=== PATIENT | male | born 1975 | race African-American/Black ===

== ENCOUNTER 2021-08-22 18:40 | Emergency (ER) | payer MEDICAID ==
[~2021-08-22] VITALS: Ht 177.8 cm; Wt 75.0 kg
[~2021-08-22 18:40] MED LIST: ALLO100T MT; COR6 MT; FURO-151 MT; LOSA25TA3 MT; METF500T PO
[2021-08-23 00:18] LABS: BASOPHILS % 0.7 % (0.0-2.0); HEMATOCRIT. 46.3 % (42.0-52.0); HEMOGLOBIN. 16.1 g/dL (14.0-18.0); LYMPHOCYTES % 16.7 % (20.0-50.0); MEAN CORPUSCULAR HEMOGLOBIN 32.2 pg (28.0-32.0); MEAN CORPUSCULAR VOLUME 92.4 fL (80.0-94.0); MEAN PLATELET VOLUME 8.5 fl (7.4-10.4); MONOCYTES % 7.2 % (2.0-8.0); NEUTROPHILS % 73.4 % (40.0-76.0); PLATELET 274 x1000/uL (130-400); RED BLOOD CELL COUNT 5.01 mill/uL (4.7-6.1); RED CELL DISTRIBUTION WIDTH 13.6 % (11.6-14.6)
[2021-08-23 00:27] LABS: CHLORIDE 104 mEq/L (98-107)
[2021-08-23] MEDS ORDERED: KETOROLAC 30MG/ML VIAL IM ONE (00:30)
[2021-08-23 00:53] VITALS: BP 121/80
== END 2021-08-23 02:09 | disposition home or self-care (01) ==
LOC: ER 18:40
DX: R07.9 Chest pain, unspecified (principal); I10 Essential (primary) hypertension; F10.129 Alcohol abuse with intoxication, unspecified; Y90.9 Presence of alcohol in blood, level not specified
CPT/HCPCS: 36415; 71045; 80053; 84484; 85025; 93005; 96372; 99285; J1885

== ENCOUNTER 2021-08-25 02:10 | Emergency (ER) | payer MEDICAID ==
[~2021-08-25] VITALS: Ht 185.4 cm; Wt 106.0 kg
[2021-08-25] MEDS ORDERED: ALLO100T MT (04:27)
[2021-08-25] MEDS ORDERED: KETOROLAC 30MG/ML VIAL IM ONE (04:30)
[2021-08-25 04:32] VITALS: BP 140/80
[2021-08-26] MEDS ORDERED: IBUP-2030 MT (00:53)
== END 2021-08-25 04:44 | disposition home or self-care (01) ==
LOC: ER 02:51
DX: M10.9 Gout, unspecified (principal)
CPT/HCPCS: 96372; 99283; J1885

== ENCOUNTER 2021-08-25 22:34 | Emergency (ER) | payer MEDICAID ==
[~2021-08-25] VITALS: Ht 185.4 cm; Wt 105.0 kg
[2021-08-25] MEDS ORDERED: KETOROLAC 60MG/2ML VIAL IM ONE (23:00)
[2021-08-25] MEDS ORDERED: HYDROCODONE/ACETAMINOPHEN 5/325MG TABLET PO ONE (23:00)
[2021-08-26 00:39] VITALS: BP 120/97
[2021-08-26] MEDS ORDERED: IBUP-2030 MT (00:53)
== END 2021-08-26 03:23 | disposition home or self-care (01) ==
LOC: ER 22:34
DX: M10.9 Gout, unspecified (principal)
CPT/HCPCS: 96372; 99283; J1885

== ENCOUNTER 2021-08-26 22:52 | Emergency (ER) | payer MEDICAID ==
[~2021-08-26] VITALS: Ht 182.9 cm; Wt 103.0 kg
[~2021-08-26 22:52] MED LIST changes: +IBUP-2030 MT
[2021-08-27 03:29] VITALS: BP 143/89
== END 2021-08-27 03:32 | disposition home or self-care (01) ==
LOC: ER 22:52
DX: R07.89 Other chest pain (principal)
CPT/HCPCS: 71045; 99283